=== PATIENT | male | born 2000 | race Native Hawaiian/Other Pacific Islander ===

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

== ENCOUNTER 2022-07-12 16:54 | Outpatient (CLI) | payer OTHER | END 2022-07-12 19:00 | disposition home or self-care (01) | LOC: RAD 16:54 | PROVIDERS: ATTEND Orthopaedic Surgery | DX: M25.572 Pain in left ankle and joints of left foot (principal) ==